=== PATIENT | male | born 1940 ===

== ENCOUNTER 2017-12-27 18:48 | Emergency (ER) | payer MEDICARE, BC ==
[2017-12-27 18:59] VITALS: TEMP 98
--- NOTE | 2017-12-27 19:14 | C.PDOC ---
History Of Present Illness 77yo male, with history of parkinsons, dementia, with baseline difficulty with swallowing, brought to ER by family for evaluation after patient choked on a bite of food and had trouble clearing secretions. 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 Patient reported to drink water afterwards with no difficulty. Time Seen by Provider: 12/27/17 19:01 Chief Complaint (Nursing): ENT Problem History Per: Family Onset/Duration Of Symptoms: Mins Current Symptoms Are (Timing): Gone Past Medical History Reviewed: Historical Data, Nursing Documentation, Vital Signs Vital Signs: Last Vital Signs Temp 98 F 12/27/17 18:51 Pulse 16 L 12/27/17 18:51 Resp 96 H 12/27/17 18:51 BP 162/92 H 12/27/17 18:51 Pulse Ox 95 12/27/17 18:51 - Medical History PMH: Arthritis, Asthma (Stable), Dementia, Fractures, HTN, Kidney Stones, Parkinson's Disease - [facility] Procedures CYSTOMETROGRAM (10/03/14) CYSTOSCOPY NEC (10/03/14) OTH NONOPER CARD AND VASC MEASURE (05/21/14) Family History: States: Unknown Family Hx - Social History Hx Tobacco Use: No Hx Alcohol Use: No Hx Substance Use: No - Immunization History Hx Tetanus Toxoid Vaccination: No Hx Influenza Vaccination: Yes Hx Pneumococcal Vaccination: Yes Review Of Systems ENT: Positive for: Other (food stuck in throat) Physical Exam - Physical Exam Appears: No Acute Distress Skin: Normal Color, Warm, Dry Head: Atraumatic, Normacephalic Eye(s): bilateral: Normal Inspection, PERRL, EOMI Oral Mucosa: Moist Throat: Normal, No Other (no food noted in throat) Neck: Normal ROM, Supple Chest: Symmetrical Cardiovascular: Rhythm Regular Respiratory: Normal Breath Sounds Gastrointestinal/Abdominal: Normal Exam, Soft Back: Normal Inspection Extremity: Normal ROM Neurological/Psych: Other (alert; flat affect) ED Course And Treatment O2 Sat by Pulse Oximetry: 95 (RA) Pulse Ox Interpretation: Normal - Radiology CXR: Interpreted by Me CXR Interpretation: Yes: No Acute Disease Medical Decision Making Medical Decision Making: brief choking episode @ dinner cleared secretions [employer] normal VS, clear lungs LOW susp of asp family discussion- prefer to d/c without further w/u and watchful observation Disposition Doctor Will See Patient In The: Office Counseled Patient/Family Regarding: Studies Performed, Diagnosis - Disposition Referrals: Wes Guillen MD [Staff Provider] - Disposition: HOME/ ROUTINE Disposition Time: 19:13 Condition: GOOD Additional Instructions: Watchful observation for signs of aspiration PNA follow-up with Dr. Guillen or return to ED as needed. Instructions: Choking Forms: [employer] (Amharic) - Clinical Impression Clinical Impression: Choking episode - Scribe Statement The provider has reviewed the documentation as recorded by the Arya Pereira Provider Attestation: All medical record entries made by the Luigiibe were at my direction and personally dictated by me. I have reviewed the chart and agree that the record accurately reflects my personal performance of the history, physical exam, medical decision making, and the department course for this patient. I have also personally directed, reviewed, and agree with the discharge instructions and disposition.
[2017-12-27 19:48] VITALS: BP 141/82; PULSE 82; RESP 22
[2017-12-27 20:12] VITALS: O2SAT 95
--- NOTE | 2017-12-28 10:06 | RAD ---
Date of service: 12/27/2017 HISTORY: choking, ? asp COMPARISON: 02/29/2016. FINDINGS: LUNGS: The lungs are well inflated and clear. PLEURA: No significant pleural effusion identified, no pneumothorax apparent. CARDIOVASCULAR: Normal. 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 VISUALIZED UPPER ABDOMEN: Normal. OTHER FINDINGS: None. IMPRESSION: No active pulmonary disease.
== END 2017-12-27 19:44 | disposition home or self-care (01) ==
LOC: C.ER 18:48
DX: T17.928A Food in respiratory tract, part unspecified causing other injury, initial encounter (principal); G20 Parkinson's disease; F03.90 Unspecified dementia, unspecified severity, without behavioral disturbance, psychotic disturbance, mood disturbance, and anxiety; I10 Essential (primary) hypertension

== ENCOUNTER 2018-04-20 11:27 | Outpatient (CLI) | payer MEDICARE, BC | END 2018-04-20 11:28 | disposition home or self-care (01) | LOC: C.RADIC 11:27 | DX: G20 Parkinson's disease (principal) ==